=== PATIENT | female | born 1985 | race Caucasian/White ===

== ENCOUNTER 2021-01-19 14:31 | Outpatient (CLI) | payer BC, SELFPAY | END 2021-01-19 14:32 | disposition home or self-care (01) | LOC: ANHCOVIDVC 14:31 | PROVIDERS: PCP Obstetrics & Gynecology | DX: Z23 Encounter for immunization (principal) | CPT/HCPCS: 0001A; 91300 ==

== ENCOUNTER 2021-02-09 14:31 | Outpatient (CLI) | payer BC, SELFPAY | END 2021-02-09 14:32 | disposition home or self-care (01) | LOC: ANHCOVIDVC 14:31 | PROVIDERS: PCP Obstetrics & Gynecology | DX: Z23 Encounter for immunization (principal) | CPT/HCPCS: 0002A; 91300 ==